=== PATIENT | female | born 1985 | race American Indian/Alaskan Native ===

== ENCOUNTER 2020-02-18 09:34 | Inpatient (IN) | payer OTHER ==
--- NOTE | 2020-02-17 10:29 | History and Physical Report ---
History of Present Illness Date of examination: 02/11/20 Date of admission: 02/18/2020 Chief complaint: here for my c- section History of present illness: Pt presents for repeat . All risk, benefits and altenatives were d/w pt. Consents were signed and placed on the chart. Pt does not desire BTL at this time. EDC Confirmation: 02/24/2020 Gestational Age: 7 4/7 weeks Past History : 4 Term Births: 2 Premature Births: 0 Living Children: 2 Para: 2 Mult. Births: 0 Prev : 0 Aborta: 2 Elect. Ab: 1 Spont. Ab: 1 Ectopics: 0 # 1 Delivery date: 12/08/2002 Weeks Gestation: 41 labor: no Delivery type: Anesthesia type: spinal Delivery location: [place] Infant Sex: Male weight: 6-4 Comments: Lack of dilation # 2 Delivery date: 2007 Comments: 10 weeks # 3 Delivery date: 03/21/2013 Weeks Gestation: 40 labor: no Delivery type: Delivery location: [place] Sex: Male weight: 6-4 # 4 Comments: TAB Past Medical History: Reviewed history and no changes required: Negative Past Medical History Past Surgical History: Reviewed history and no changes required: X2 Past Medical History Anesthesia Complications: negative Anemia: positive Autoimmune Disorder: negative Bleeding Disorder: negative Blood Transfusions: negative Breast Disease: negative Diabetes: negative Heart Disease: negative Hypertension: negative Hepatitis/Liver Disease: negative Kidney Disease/UTI: negative Neurologic/Epilepsy/Migraines: negative Phlebitis/Varicosities: negative Psychiatric: negative Pulmonary Disease/Asthma: negative Thyroid Disease: negative Hospitalizations: negative 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 of genital herpes: no Partner hx. of genital herpes: no Rash, Viral, or Febrile illness since last LMP? no Varicella/Chicken Pox Status: Previous Disease TB Risk: no Genetic History ADVANCED MATERNAL AGE Congenital Heart Defect: Mom: no Dad: no Mukesh Disease: Mom: no Dad: no Thalassemia Mom: yes Dad: no Comments: Beta Thalassemia Neural Tube Defect Mom: no Dad: no Down's Syndrome Mom: no Dad: no Kirby-Sachs Mom: no Dad: no Sickle Cell Disease/Trait Mom: no Dad: no Hemophilia Mom: no Dad: no Muscular Dystrophy Mom: no Dad: no Cystic Fibrosis Mom: no Dad: no Beverly Chorea Mom: no Dad: no Mental Retardation Mom: no Dad: no Fragile X Mom: no Dad: no Other Genetic/Chromosomal Disorder Mom: no Dad: no Child w/other defect Mom: no Dad: no Enviromental Exposures Xray Exposure: no Medication, drug, or alcohol use since LMP: no Chemical/Other Exposure: no Exposure to Cat Liter: no Hx of Parvovirus (Fifth Disease): no Occupational Exposure to Children: none Active Medications: None Current Allergies: No known allergies Past History Past Medical History: other (see HPI) Past Surgical History: other (see HPI) 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 denies: single - Obstetrical History Expected Date of Delivery: 02/24/20 Actual Gestation: 39 Week(s) 0 Day(s) : 5 Para: 2 Hx # Term Pregnancies: 2 Number of Pregnancies: 0 Spontaneous Abortions: 1 Induced : 1 Number of Living Children: 2 Review of Systems All systems: negative - Physical Exam Cardiovascular: Normal S1, Normal S2 Lungs: Positive: Clear to auscultation, Normal air movement Abdomen: Positive: normal appearance, soft. Negative: distention, tenderness, guarding Genitourinary (Female): Positive: other (DEFERRED) Deep Tendon Reflex Grade: Normal +2 - Obstetrical FHR: auscultation normal Results All other labs normal. Assessment and Plan - Patient Problems (1) 39 weeks gestation of Status: Acute (2) Previous delivery affecting Status: Acute Plan to address problem: -ADMIT -PREPARE FOR C/S -CONSENTS ON CHART (3) AMA (advanced maternal age) multigravida 35+ Status: Acute
[~2020-02-18 09:34] MED LIST: BICITRA ORAL LIQD 30ML PO ONE; FAMOTIDINE 20 MG/2 ML INJ IV ONE; LACTATED RINGERS 1,000 ML IV SCH; METOCLOPRAMIDE 10 MG/2 ML INJ IV ONE; OXYTOCIN DRIP 30 UNITS/500 ML BAG IV SCH; ceFAZolin/Water 2 GM/20 ML 2 GM/20 ML SYRINGE IV NR
[2020-02-18] MEDS ORDERED: PROMETHAZINE 25 MG TAB PO PRN (10:18)
[2020-02-18] MEDS ORDERED: diphenhydrAMINE 50 MG/ML VIAL IV PRN (10:18)
[2020-02-18] MEDS ORDERED: NalbUPHINE 10 MG/1 ML INJ IV PRN (10:18)
[2020-02-18] MEDS ORDERED: PROMETHAZINE 25 MG RECT SUPP PR PRN (10:18)
[2020-02-18] MEDS ORDERED: ONDANSETRON 4 MG/2 ML INJ IV PRN (10:18)
[2020-02-18] MEDS ORDERED: NALOXONE 0.4 MG/1 ML INJ IV PRN ×2 (10:18→13:17)
--- NOTE | 2020-02-18 10:18 | Anesthesia Day of Surgery ---
Anesthesia Day of Surgery - Day of Surgery Patient Examined: Yes Patient H&P Reviewed: Yes Patient is NPO: Yes Beta Blockers: No Cardiac Clearance: No Pulmonary Clearance: No Norbert's Test: N/A
--- NOTE | 2020-02-18 10:29 | Anesthesia Consultation ---
Anesthesia Consult and Med Hx Date of service: 02/18/20 - Airway Anesthetic Teeth Evaluation: Good ROM Head & Neck: Adequate Mental/Hyoid Distance: Adequate Mallampati Class: Class II Intubation Access Assessment: Probably Good - Pulmonary Exam CTA: Yes - Cardiac Exam Cardiac Exam: RRR - Pre-Operative Health Status ASA Pre-Surgery Classification: ASA2 Proposed Anesthetic Plan: Spinal Nerve Block: TAP - Pulmonary Hx Smoking: No Hx Sleep Apnea: No - Cardiovascular System Hx Hypertension: No - Gastrointestinal Hx Gastroesophageal Reflux Disease: No
[2020-02-18 11:13] LABS: Basophils % (Auto) 0.3 % (0.0-1.8); Eosinophils # (Auto) 0.1 K/mm3 (0.0-0.4); Eosinophils % (Auto) 0.8 % (0.0-4.3); Hematocrit 40.4 % (30.3-42.9); Hemoglobin 13.4 gm/dl (10.1-14.3); Mean Corpuscular HGB Conc 33 % (30-34); Mean Corpuscular Volume 87 fl (79-97); Monocytes # (Auto) 0.7 K/mm3 (0.0-0.8); Platelet Count 197 K/mm3 (140-440); Red Blood Count 4.64 M/mm3 (3.65-5.03); Red Cell Distribution Width 15.5 % (13.2-15.2)
[2020-02-18] MEDS ORDERED: BUPIVACAINE/PF (0.5%) 5 MG/1 ML 30 ML VIAL INFILTRATI ONE (11:32)
[2020-02-18] MEDS ORDERED: BUPIVACAINE /DEX-WATER 0.75% (2 ML) AMPULE INFILTRATI ONE (11:32)
[2020-02-18] MEDS ORDERED: ONDANSETRON 4 MG/2 ML INJ ONE (11:32)
[2020-02-18] MEDS ORDERED: KETOROLAC 30 MG/1 ML INJ ONE (11:32)
[2020-02-18] MEDS ORDERED: ePHEDrine SULFATE 50 MG/1 ML INJ ONE (11:32)
[2020-02-18] MEDS ORDERED: dexAMETHasone 20 MG/5 ML VIAL ONE (11:35)
[2020-02-18] MEDS ORDERED: METOCLOPRAMIDE 10 MG/2 ML INJ IV ONE (12:00)
[2020-02-18] MEDS ORDERED: FAMOTIDINE 20 MG/2 ML INJ IV ONE (12:00)
[2020-02-18] MEDS ORDERED: BICITRA ORAL LIQD 30ML PO ONE (12:00)
[2020-02-18] MEDS ORDERED: WATER FOR IRRIG STERILE 1,500 ML BOTTLE IR ONE (12:08)
[2020-02-18] MEDS ORDERED: SODIUM CHLORIDE 0.9% IRR 1,500 ML BOTTLE IR ONE (12:08)
[2020-02-18] MEDS ORDERED: ceFAZolin/STERILE WATER 2 GM/20 ML SYRINGE IV ONE (12:10)
[2020-02-18] MEDS ORDERED: OXYTOCIN DRIP 30,000 MILLIUNITS/500 ML BAG IV ONE (12:58)
--- NOTE | 2020-02-18 13:16 | Operative Report ---
Operative Report Operative Report: Date of procedure: 02/18/2020 Pre-operative diagnosis: 39 weeks gestation Advanced maternal age Previous section x2 Post-operative diagnosis: Same Procedure name(s): Repeat low transverse section via Pfannenstiel skin incision Surgeon: Dr. Thomas Junior Network Administrator: SHAYNE Anesthesia: Spinal EBL: 600 mL Urine output: 150 mL of clear urine out at end of the procedure Fluids: 1400 mL Findings: Liveborn female weight 6 pounds 6 ounces Apgars of 8 and 9 at 1 and 5 minutes Terminal meconium noted after delivery Grossly normal fallopian tubes and ovaries bilaterally Normal uterus Adhesions at the level of the fascia. No adhesions noted on the uterus. Indications: Patient presented for scheduled repeat section. All risk benefits and alternatives were discussed with the patient. Consents were signed and placed on the chart. Procedure: Patient was taking to the operating room. Patient was then prepped and draped in sterile fashion after anesthesia was found to be adequate. A low transverse skin incision was made with the scalpel through previous incisional scar and carried down to the underlying layer of fascia with the Bovie. The fascia was then incised in the midline and this incision was extended bilaterally with the Bovie. The superior aspect of the fascia was grasped with Jesus clamps tented upward and dissected off of the anterior rectus muscles with the scalpel. In similar fashion the inferior aspect of the fascia was grasped with Jesus clamps tented upward and dissected off of the anterior rectus muscles. The rectus muscles were then bluntly divided in the midline. The peritoneum was identified and entered into sharply. The bladder blade was placed. A lower transverse uterine incision was made with the scalpel and extended bilaterally with the bandage scissors. Artificial rupture of membranes was performed yielding [clear amniotic fluid]. The infant's head was then delivered atraumatically. The anterior shoulder and rest of delivered without difficulty. The umbilical cord was clamped x2. The cord was cut. The was then placed in sterile bassinet. [The cord blood was collected]. The placenta was manually extracted in its entirety. The uterus was exteriorized and cleared of all clots and debris. The uterine incision was closed using 0 Vicryl in a running locking fashion. [ A second imbricating layer of the same suture was then created.] Several [id number] sutures were used along the incision line to secure excellent hemostasis. The posterior cul-de-sac was copiously irrigated. The uterus was returned to the abdomen. Hemoblast was placed along the uterine incision with excellent hemostasis noted. The gutters were also irrigated. The anterior rectus muscles were reapproximated using 3-0 Vicryl. The anterior rectus fascia was reapproximated using 0 Vicryl in a running fashion. The subcuticular fat was reapproximated using 2-0 Vicryl in a running fashion. The skin was reapproximated with 4-0 Monocryl in a subcuticular stitch. The patient tolerated the procedure well. Sponge lap and needle counts were all correct x3. Patient was taken to the recovery room awake and in stable condition.
[2020-02-18] MEDS ORDERED: WITCH HAZEL/ GLYCERIN PAD TP PRN (13:17)
[2020-02-18] MEDS ORDERED: LANOLIN/ZINC/DIMETHICONE (LANSINOH) 7 GM TP PRN (13:17)
--- NOTE | 2020-02-18 13:32 | Progress Note ---
Spinal Anesthesia Block - Spinal Anesthesia Block Start Time: 11:46 Stop Time: 11:59 Performed by:: STEVEN EVANS Procedure: Spinal anesthesia block is being performed for []. H&P, labs have been reviewed. Patient's questions and concerns have been answered. Informed consent has been performed. Timeout has was performed. Patient in sitting position on side of bed. Sterile prep and drape was performed. 3 mL 1% lidocaine skin wheal at L [3]-L [4]. Needle introducer advanced. 25-gauge spinal needle advanced, [+] CSF [-] blood. [Marcaine 10.5mg and Precedex 5mcg] Spinal dose was given. All needles removed. Patient tolerated procedure well.
[2020-02-18] MEDS ORDERED: D5W/LACTATED RINGERS 1,000 ML IV SCH (14:00)
[2020-02-18] MEDS: HYDROmorphone 1 MG/1 ML INJ IV PRN ×2 (17:30→23:07)
[2020-02-18] MEDS ORDERED: ceFAZolin/NS 1 GM/50 ML 1 GM/50 ML BAG IV SCH (20:00)
[2020-02-18] MEDS: KETOROLAC 30 MG/1 ML INJ IV PRN (21:08)
[2020-02-18] MEDS ORDERED: HYDROmorphone 1 MG/1 ML INJ ONE (23:00)
[2020-02-19] MEDS ORDERED: HYDROcodone/ACETAMINOPHEN 5-325 MG TAB ONE ×2 (01:00→15:30)
[2020-02-19] MEDS ORDERED: D5RL 1000 ML IV SOLN IV ONE (01:00)
[2020-02-19] MEDS ORDERED: KETOROLAC 30 MG/1 ML INJ ONE (01:00)
[2020-02-19] MEDS ORDERED: IBUPROFEN 800 MG TAB ONE (01:00)
[2020-02-19] MEDS ORDERED: DIPHtheria,PERTUSSIS(ACELL),TETANUS VACCINE/PF 0.5 ML VIAL IM ONE (06:00)
[2020-02-19] MEDS ORDERED: IBUPROFEN 800 MG TAB PO PRN (06:00)
[2020-02-19] MEDS: HYDROcodone/ACETAMINOPHEN 5-325 MG TAB PO PRN ×3 (09:13→20:42)
[2020-02-19] MEDS: KETOROLAC 30 MG/1 ML INJ IV PRN ×2 (10:50→15:40)
[2020-02-19] MEDS ORDERED: CEFAZOLIN IV ONE (15:30)
[2020-02-19] MEDS ORDERED: NS IV ONE (15:30)
--- NOTE | 2020-02-19 17:02 | Post Anesthesia Evaluation ---
- Post Anesthesia Evaluation Patient Participated: Yes Airway Patent: Yes Stable Respiratory Function: Yes Nausea/Vomiting: No Temp > 96.8F: Yes Pain Manageable: Yes Adequeate Hydration: Yes Anesthesia Complications: No Block Receding Appropriately: Yes Patient on Ventilator: No
[2020-02-19] MEDS: HYDROmorphone 1 MG/1 ML INJ IV PRN (22:38)
[2020-02-20 04:05] LABS: Hematocrit 32.6 % (30.3-42.9); Hemoglobin 10.8 gm/dl (10.1-14.3)
[2020-02-20] MEDS: HYDROcodone/ACETAMINOPHEN 5-325 MG TAB PO PRN ×2 (04:17→09:22)
--- NOTE | 2020-02-20 04:53 | Discharge Summary ---
Providers - Providers Date of Admission: 02/18/20 09:34 Date of discharge: 02/20/20 (pt desires d/c home) Attending physician: BIRGIT RAYGOZA Primary care physician: BIRGIT RAYGOZA Hospitalization Reason for admission: repeat c/s Condition: Good Pertinent studies: post op H&H 10.8/32.6 Procedures: repeat c/s Hospital course: uncomplicated repeat c/s and course Disposition: - TO HOME OR SELFCARE - Discharge Diagnoses (1) delivery delivered Status: Acute Core Measure Documentation - Palliative Care Palliative Care/ Comfort Measures: Not Applicable - Core Measures Any of the following diagnoses?: none Exam - Constitutional Vitals: Temp Pulse Resp BP Pulse Ox 98.3 F 91 H 20 133/89 98 02/20/20 00:50 02/20/20 00:50 02/20/20 00:50 02/20/20 00:50 02/20/20 00:50 General appearance: Present: no acute distress, well-nourished - EENT Eyes: Present: PERRL ENT: hearing intact, clear oral mucosa - Neck Neck: Present: supple, normal ROM - Respiratory Respiratory effort: normal - Cardiovascular Rhythm: regular - Extremities Extremities: No edema - Abdominal General gastrointestinal: Present: soft, non-tender, non-distended, normal bowel sounds Female genitourinary: Present: normal - Integumentary Integumentary: Present: clear, warm, dry - Musculoskeletal Musculoskeletal: gait normal, strength equal bilaterally - Psychiatric Psychiatric: appropriate mood/affect, intact judgment & insight - Neurologic Neurologic: CNII-XII intact, moves all extremities - Additional findings Additional findings: Breast feeding, incision D&I, lochia scant, fundus firm, b/p 110-130's/70-80's. Plan Diet: regular Wound: open to air, keep clean and dry Follow up with: BIRGIT RAYGOZA MD [Primary Care Provider] - 7 Days (Congratulations!! Please call [phone] to schedule your incision check in 1 week. Call for any questions or concerns. ) Prescriptions: Ibuprofen [Motrin 800 MG tab] 800 mg PO Q8HR PRN #30 tablet PRN Reason: Pain, Moderate (4-6) oxyCODONE /ACETAMINOPHEN [Percocet 5/325] 1 tab PO Q4HR #30 tab
[2020-02-20 12:48] VITALS: BP 109/63
== END 2020-02-20 13:30 | disposition home or self-care (01) | DRG 788 ==
LOC: APU 09:34 → OB 15:04
PROVIDERS: ADMIT Obstetrics & Gynecology; ATTEND Obstetrics & Gynecology
PROC: 10D00Z1 Extraction of Products of Conception, Low, Open Approach (ICD-10-PCS; principal; 2020-02-18)
PROC: 3E0234Z Introduction of Serum, Toxoid and Vaccine into Muscle, Percutaneous Approach (ICD-10-PCS; 2020-02-19)
DX: O34.211 Maternal care for low transverse scar from previous cesarean delivery (principal); Z3A.39 39 weeks gestation of pregnancy; Z37.0 Single live birth; Z23 Encounter for immunization; O77.0 Labor and delivery complicated by meconium in amniotic fluid
CPT/HCPCS: 36415; 85014; 85018; 85025; 86850; 86900; 86901; G0378; J0690; J1100; J1170; J1885; J2405; J2765; J3490; J7120; J7121; U0003